=== PATIENT | male | born 2005 | race Caucasian/White ===

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

== ENCOUNTER 2023-03-22 13:05 | Emergency (ER) | payer BC, OTHER ==
[2023-03-22] MEDS ORDERED: Ketorolac Tromethamine 30 MG/ML VIAL ONE (16:48)
== END 2023-03-22 17:08 | disposition home or self-care (01) ==
LOC: ERS 13:05
DX: M25.532 Pain in left wrist (principal); M54.50 Low back pain, unspecified; R21 Rash and other nonspecific skin eruption; F17.210 Nicotine dependence, cigarettes, uncomplicated
CPT/HCPCS: 72100; 96372; J1885